=== PATIENT | male | born 1970 | race Caucasian/White ===

== ENCOUNTER 2017-06-06 08:44 | Outpatient (CLI) | payer OTHER ==
[2012-04-17 09:39] VITALS: BP 118/72
[2017-06-06 09:10] LABS: MEAN CORPUSCULAR HEMOGLOBIN 29.6 pg (28.0-34.0); MEAN CORPUSCULAR VOLUME 89.4 fl (80.0-100.0)
[2017-06-06 09:29] LABS: eGFR (African) > 60; eGFR (Non-African) > 60
== END 2017-06-06 08:45 ==
LOC: LAB 08:44
PROVIDERS: ATTEND Family Medicine
DX: Z00.00 Encounter for general adult medical examination without abnormal findings (principal)
CPT/HCPCS: 36415; 80053; 80061; 85027